=== PATIENT | male | born 2000 | race Caucasian/White ===

== ENCOUNTER 2022-01-07 15:04 | Emergency (ER) | payer OTHER, BC, SELFPAY ==
--- NOTE | ~2022-01-07 | XR_ITS ---
EXAMINATION: XR ankle LT min 3V DATE: 01/07/2022 15:29 INDICATION: Left ankle pain TECHNIQUE: Anteroposterior, lateral, mortise, and additional oblique view of the ankle were obtained. COMPARISON: 04/08/2018 FINDINGS: Bone alignment is normal. A subtle heterotopic ossification projects dorsal to the proximal aspect of the navicular which was not identified on the comparison examination. No there is mild josep elysia soft tissue swelling of ankle. IMPRESSION: 1. Possible avulsion injury of the dorsal navicular. Correlate for point tenderness at this site. Reviewed, dictated and finalized at location F. [employer] IMPRESSION: 1. Possible avulsion injury of the dorsal navicular. Correlate for point tender ness at this site.
[2022-01-07 15:20] VITALS: BP 144/82; PULSE 90; RESP 18; TEMP 37.3; O2SAT 100
--- NOTE | 2022-01-07 15:34 | ED.LOWEXIN ---
HPI - Extremity Injury (Lower) General Chief Complaint: Extremity Injury, Lower Stated Complaint: Lt Ankle Pain Time Seen by Provider: 01/07/22 15:34 Source: patient, RN notes reviewed and old records reviewed Mode of arrival: ambulatory Limitations: no limitations History of Present Illness HPI Narrative: 21-year-old male presents to [facility] with complaints of injury to his left ankle/foot when he slipped off of step of truck onto offset concrete landed on his left foot and ankle and he heard a pop. He reports, he busted his ass ,around 1430 this afternoon. Patient has pain to left anterior dorsal foot/ankle region with any weight bearing with noted swelling present. Patient denies any tingling or numbness to his left foot with strong pedal and posterior tibial pulses to his left foot. Patient works for [employer].Patient denies any other injury or any LOC at time of injury. MD complaint: ankle injury and foot injury Onset (ago): hour(s) Related Data Home Medications Medication Instructions Recorded Confirmed No Home Medications 06/20/20 01/07/22 Allergies Allergy/AdvReac Type Severity Reaction Status Date / Time No Known Allergies Allergy Verified 01/07/22 15:28 Review of Systems Review of Systems: CONSTITUTIONAL: Denies fever, chills, or sweats. EYES: Denies visual changes, redness, or discharge. ENT: Denies rhinorrhea, congestion, sore throat, or otalgia. CARDIOVASCULAR: Denies chest pain, palpitations, or edema. RESPIRATORY: Denies cough or dyspnea. GASTROINTESTINAL: Denies abdominal pain, nausea, vomiting, or diarrhea. GENITOURINARY: Denies dysuria or hematuria. SKIN: Denies rash or itching. MUSCULOSKELETAL: Denies back pain, left anterior dorsal left foot/ankle region with noted swelling present, or myalgia. NEUROLOGIC: Denies headache, numbness, or weakness. PSYCHIATRIC: Denies anxiety or depression. All systems reviewed & are unremarkable except as noted in HPI and below PMFSH Past Medical History Medical History (Updated 01/07/22 @ 17:28 by Mary Lucas NP) Distal radius fracture, left Surgical History Surgical History (Updated 01/07/22 @ 17:28 by Mary Lucas NP) H/O left wrist surgery repair of fracture left wrist, ORIF Social History Social History (Updated 01/07/22 @ 17:27 by Mary Lucas NP) Smoking status: Never smoker Alcohol intake: never Living arrangements: with family Gender identity (if verbalized by the patient): Male Comments At time of signature, agree with nursing past medical, surgical, social and family history. There is no relevant family history pertinent to the presenting complaint Exam Narrative: GENERAL: Well-appearing, well-nourished, and in no acute distress. HEAD: Normocephalic, atraumatic. EYES: PERRLA and EOMI. ENT: Nares clear, no rhinorrhea or epistaxis. Mucous membranes moist. NECK: Supple. no lymphadenopathy CHEST: Clear to auscultation. No respiratory distress.SAO2 100% on room air HEART: Regular rate and rhythm. No murmur heard. Normal peripheral pulses. ABDOMEN: Soft, nontender, nondistended, normal active bowel sounds. EXTREMITIES: Normal range of motion. No edema. Noted exception of pain and swelling of left anterior dorsal foot/ankle region with tenderness with any weight bearing to left foot and movement of left foot and ankle. circulation and sensation is intact. SKIN: Warm, dry, no rash. NEURO: No focal deficits. Alert and oriented x3. Course Course Level of Care: Express Care Visit Vital Signs Vital signs: Vital Signs Temperature 37.3 C 01/07/22 15:20 Pulse Rate 90 01/07/22 15:20 Respiratory Rate 18 01/07/22 15:20 Blood Pressure 144/82 H 01/07/22 15:20 Pulse Oximetry 100 01/07/22 15:20 Temperature 37.3 C 01/07/22 15:20 Pulse Rate 90 01/07/22 15:20 Respiratory Rate 18 01/07/22 15:20 Blood Pressure 144/82 H 01/07/22 15:20 Pulse Oximetry 100 01/07/22 15:20 MDM - Ex
== END 2022-01-07 17:00 | disposition home or self-care (01) ==
PROVIDERS: Emergency Provider Registered Nurse; PCP Family Medicine Adolescent Medicine
DX: S92.252A Displaced fracture of navicular [scaphoid] of left foot, initial encounter for closed fracture (principal); W17.89XA Other fall from one level to another, initial encounter
CPT/HCPCS: 73610; 99214; G0463